=== PATIENT | male | born 1960 | race Caucasian/White ===

== ENCOUNTER → 2024-05-04 06:17 | Day surgery (SDC) | payer OTHER, SELFPAY | LOC: GI 06:17 | PROVIDERS: ATTENDING PHYSICIAN Internal Medicine | DX: R12 Heartburn (principal); K29.70 Gastritis, unspecified, without bleeding | CPT/HCPCS: 43239; 88305; 88342 ==

== ENCOUNTER → 2025-03-04 18:27 | Outpatient (REF) | payer OTHER, SELFPAY | LOC: MRI 3T 18:27 | PROVIDERS: ATTENDING PHYSICIAN Ophthalmology; FAMILY PHYSICIAN Family Medicine | DX: H53.2 Diplopia (principal); H50.00 Unspecified esotropia; H49.22 Sixth [abducent] nerve palsy, left eye | CPT/HCPCS: 70553; A9575 ==

== ENCOUNTER 2025-04-08 22:08 | Emergency (ER) | payer OTHER, SELFPAY ==
[2025-04-08 22:12] VITALS: BP 141/92
[2025-04-08 22:24] LABS: Hematocrit 42.6 % (39.0-52.0); Hemoglobin 14.4 g/dL (13.0-18.0); Mean Corp Hgb Conc. 33.8 g/dL (33.0-37.0); Mean Corpuscular Volume 89.7 fL (80.0-94.0); Nucleated Red Blood Cells % 0 % (-); Platelet Count 143 10^3/uL (130-400); Red Cell Dist. Width 12.5 % (11.5-14.5)
[2025-04-08 22:42] LABS: ALT (SGPT) 21 U/L (0-50); AST (SGOT) 21 U/L (17-59); Albumin 4.4 g/dl (3.5-5.0); Alkaline Phosphatase 72 U/L (38-126); Blood Urea Nitrogen 26 mg/dl (9-20); Calcium 9.7 mg/dl (8.4-10.2); Carbon Dioxide 27 mmol/L (22-30); Chloride 102 mmol/L (98-107); Glucose 85 mg/dl (70-99); Potassium 4.2 mmol/L (3.5-5.1); Sodium 132 mmol/L (135-145); Total Protein 7.0 g/dl (6.3-8.2); eGFR > 60.00
--- NOTE | 2025-04-08 23:23 | EDRN ---
burning pain stared on Saturday night right arm
currently c/o pain / burning sensation with touch to the skin
worse where clothing is tight on the skin
no noticable skin abnormalities
[2025-04-08 23:26] VITALS: BMI 23.4
[2025-04-09] MEDS: NEURONTIN 100 MG PO (00:09)
--- NOTE | 2025-04-09 00:33 | ED.GENMED ---
History of Present Illness
General
Chief Complaint: Skin Problem
Time Seen by Provider: 04/08/25 23:12
History of Present Illness
History of Present Illness:
Note:
CHIEF COMPLAINT(S)
Burning sensation with no visible rash, lasting for a couple of days.
HISTORY OF PRESENT ILLNESS
The patient is a 64-year-old male who presents with a burning sensation that has been ongoing for a couple of days. The sensation is described as being present 'everywhere,' particularly noticeable wherever there is pressure or contact, such as the
waistband area and where socks contact the legs. The patient reports that it felt as if there was a rash, although none is visible. The sensation sometimes resolves by the following morning but returns by night. He has not been exposed to any known
irritants and denies new medications. The patient mentions experiencing a headache but denies fever, chills, nausea, vomiting, respiratory issues, or any apparent cause for his symptoms. The symptoms remain consistent throughout the day and have
affected areas including the arms, head, and waist. Morning brings no change in sensation.
PAST MEDICAL AND SURGICAL HISTORY
He recently weaned off Meloxicam for knee pain.
MEDICATIONS
- TB 157 peptide
- DBCC 157 peptide for joint issues (used for 6 months)
REVIEW OF SYSTEMS
- General: Feels burning sensation under the skin. No fever or chills.
- Neurological: Reports occasional headache.
- Gastrointestinal: No issues with eating, drinking, or using the bathroom.
PHYSICAL EXAM
General: Alert, no acute distress.
Skin: No visible rash noted. Patient reports a burning sensation under the skin.
Head: Normocephalic, atraumatic.
Neck: Supple, trachea midline.
Eye Ears, Nose, Mouth, and Throat: Oral mucosa moist.
Cardiovascular: Normal peripheral perfusion, no edema.
Respiratory: Respirations are non-labored.
Gastrointestinal: Abdomen nondistended.
Back: Normal range of motion, normal alignment.
Musculoskeletal: Normal range of motion, normal strength.
Neurological: Alert and oriented to person, place, time, and situation, no focal neurological deficit observed.
Psychiatric: Cooperative, appropriate mood, and affect.
PLAN
Further research and evaluation for neurogenic pain causes, given the absence of visible skin changes but presence of burning sensations. Possible referral to a neurologist for further assessment and management.
DIFFERENTIAL DIAGNOSIS
The Differential Diagnosis includes, in no particular order and is not limited to:
- Peripheral neuropathy
- Fibromyalgia
- Contact dermatitis (irritant or allergic, although rash absent)
- Neuropathic pain syndromes
- Herpes zoster prodrome
- Medication withdrawal syndrome
- Paraneoplastic syndrome
- Anxiety-related somatic symptoms
- Early signs of a systemic condition such as lupus or systemic vasculitis
- Diabetic neuropathy (if diabetic history is present)
Disposition:
SUMMARY OF ENCOUNTER
The patient, a 64-year-old male, presented with a burning sensation under the skin with no visible rash, ongoing for a couple of days. The sensation is widespread with no recent medication changes or exposure to irritants. The patient experienced a
minor headache but no systemic symptoms like fever or chills. In the emergency department, the patient was given one dose of Gabapentin with minimal relief.
DISPOSITION
The patient wishes to be discharged.
ASSESSMENT
The patient is experiencing symptoms consistent with polyneuropathy, which could be related to multiple potential underlying conditions such as peripheral neuropathy or neuropathic pain syndromes.
PLAN
The patient will follow up with neurology for further evaluation and management of suspected polyneuropathy.
MEDICATION RECONCILIATION
A dose of Gabapentin was administered during the ED visit.
MEDICAL DECISION MAKING
-Complexity of Data Reviewed: Chronic conditions affecting care - the patients recent discontinuation of Meloxicam for knee pain. The differential diagnosis includes peripheral neuropathy, fibromyalgia, contact dermatitis (irritant or allergic),
neuropathic pain syndromes, herpes zoster prodrome, medication withdrawal syndrome, paraneoplastic syndrome, anxiety-related somatic symptoms, early signs of a systemic condition such as lupus or systemic vasculitis, and diabetic neuropathy.
DEGREE OF RISK
Consideration of Admission/Observation: Escalation of care including admission/observation was considered given the complexity and risk of the patients presenting complaint. However, ultimately it was felt the patient is safe for outpatient
management with close follow-up as work-up was reassuring, and the patients symptoms were somewhat controlled.
DIAGNOSIS
Polyneuropathy, unspecified (ICD-10: G62.9)
Past History
Past History
ED Past Medical History: GERD, Other (BPH, Back pain, Herniated disc, Sleep apnea, UTI, Pituitary disorder, Pituitary adenoma, Raynauds, Left clavical fracture, ) and Other (Pituitary adenoma)
ED Past Surgical History: Orthopedic (Left elbow triceps, Left partial knee replacement. Left shoulder replacement, Revision left shoulder, ) and Other (Hernia, )
Social History
Tobacco: Non-smoker
Alcohol: Occasional
Drug: None
Personal:
Living: with family
Employment: Employed
Phy Exam
Physical Exam
Physical Exam:
.
Course
Orders/Labs/Results
Orders:
Orders
04/08/25 22:17
CBC/With Diff [Complete Blood Count/With Diff] Urgent
CMP [Comprehensive Metabolic Panel] Urgent
Erythrocyte Sed Rate Urgent
Comment: ADD ON
04/08/25 22:19
C-Reactive Protein Urgent
Comment: ADD ON
04/08/25 23:54
Add On- LAB Urgent
Tests Added?: crp, sed
04/09/25 00:00
Gabapentin [Neurontin] 100 mg PO NOW STA
Abnormal Lab Results
04/08/25
22:17
WBC 3.9 L 10^3/uL
(4.8-10.8)
Absolute Lymphs (auto) 0.9 L 10^3/uL
(1.2-3.4)
Sodium 132 L mmol/L
(135-145)
BUN 26 H mg/dl
(9-20)
04/08/25 22:17
04/08/25 22:17
Vital Signs
Initial and Last Documented VS:
Initial Vital Signs
Temp Pulse Resp BP Pulse Ox
97.6 F 68 15 141/92 97
04/08/25 22:12 04/08/25 22:12 04/08/25 22:12 04/08/25 22:12 04/08/25 22:12
Last Documented Vital Signs
Temp Pulse Resp BP Pulse Ox
97.6 F 68 15 141/92 97
04/08/25 22:12 04/08/25 22:12 04/08/25 22:12 04/08/25 22:12 04/09/25 00:34
*Pulse Oximetry
SaO2: 97
Oxygen Mode of Delivery: Room air
Patient hypoxic: no
*Critical Care Note
Total Time (30-74mins, 75-104mins- exclusive of procedures): Not Applicable
ED Attending Note
-
Portions of this chart may have been created with voice recognition software.� Occasional wrong word or��sound alike� substitutions may have occurred due to the inherent limitations of voice recognition software.
Discharge Plan
Departure
Patient Disposition: Home (Routine Discharge)
Date of Disposition: 04/09/25
Time of Disposition: 00:33
Patient with high blood pressure during this ER visit?: No
Condition: Fair
Discharge Problem:
Polyneuropathy
Instructions: Peripheral neuropathy
Prescriptions:
New
gabapentin 100 mg capsule
100 mg PO BID Qty: 10 0RF
No Action
meloxicam 15 mg Tablet
15 mg PO DAILY
tamsulosin [Flomax] 0.4 mg Capsule
0.8 mg PO HS
lansoprazole 15 mg Capsule,Delayed Release(Dr/Ec)
15 mg PO DAILY
methen-sod phos-meth blue-hyos [Urogesic-Blue] 81.6-40.8-0.12 mg tablet
1 tab PO QID PRN (Reason: urinary tract bother) Qty: 40 6RF
Referrals:
Eric Bates MD [Family Provider, Family Practice]
Activity Restrictions/Additional Instructions:
Your prescriptions were sent electronically to the pharmacy that you specified.
Thank You for choosing [facility].
It was a pleasure meeting you and taking part in your care. We hope for your continued healing and wellness.
Please read discharge instructions in their entirety. However, they are for general education and may not describe your exact diagnosis at discharge. Information on your ER visit and medical conditions were discussed with you along with appropriate
follow up information...
If indicated, please take your medications as instructed and indicated on discharge paperwork.
Please schedule a follow up appointment as directed. Call to schedule an appointment
Please return to the emergency department with ANY change in, persisting, or worsening of symptoms. If any of your symptoms do not improve, or persist, or become more severe within 6-12 hours, please return to the emergency department for further
care.
Please return to the emergency department if you develop a headache, neck pain/stiffness, fever greater than 100.4F, chest pain, shortness of breath, persistent nausea, vomiting, slurred speech, difficulty walking, numbness/tingling, weakness, signs
of infection or any other symptoms that are worrisome to you.
If you have any questions or concerns please do not hesitate to call the Hospital at .
Interventions
Interventions:
*Risk Screen - Suicide Last Done: 04/08/25 22:12
*General Assessment Last Done: 04/08/25 22:12
*Neglect/Abuse Screening Last Done: 04/08/25 22:12
*ED- Fall Risk Assessment Last Done: 04/08/25 22:12
*ED COVID-19 Vaccine History Last Done: 04/08/25 22:12
*ED Influenza Vaccine History Last Done: 04/08/25 22:12
*Nursing Disposition Last Done: 04/09/25 00:46
ED-Skin Assessment Last Done: 04/08/25 23:21
Discharge Date and Time
Discharge Date/Time: 04/09/25 00:47
Print Language: [id number]
[2025-04-09 00:49] LABS: C-Reactive Protein < 5.00 mg/L (0.0-10.00)
== END 2025-04-09 00:47 | disposition home or self-care (01) ==
LOC: EMR 22:08
PROVIDERS: EMERGENCY PHYSICIAN Student in an Organized Health Care Education/Training Program; FAMILY PHYSICIAN Family Medicine
DX: G62.9 Polyneuropathy, unspecified (principal); G47.30 Sleep apnea, unspecified; K21.9 Gastro-esophageal reflux disease without esophagitis; I73.00 Raynaud's syndrome without gangrene; N40.0 Benign prostatic hyperplasia without lower urinary tract symptoms; Z86.018 Personal history of other benign neoplasm; Z96.612 Presence of left artificial shoulder joint; Z96.652 Presence of left artificial knee joint
CPT/HCPCS: 99283; 80053; 85025; 85652; 86140